=== PATIENT | male | born 1950 | race Two or more races ===

== ENCOUNTER 2017-07-30 08:55 | Outpatient (CLI) | payer OTHER | END 2017-07-30 23:59 | LOC: MSC 08:55 | PROVIDERS: ATTEND Anesthesiology | DX: G89.29 Other chronic pain (principal); M54.5 Low back pain; M62.830 Muscle spasm of back; N18.6 End stage renal disease; Z99.2 Dependence on renal dialysis ==

== ENCOUNTER 2017-10-15 10:00 | Outpatient (CLI) | payer OTHER | END 2017-10-15 23:59 | LOC: MSC 10:00 | PROVIDERS: ATTEND Anesthesiology | DX: M54.5 Low back pain (principal); G89.29 Other chronic pain; M62.830 Muscle spasm of back; G82.20 Paraplegia, unspecified; Z79.899 Other long term (current) drug therapy; N18.6 End stage renal disease; Z99.2 Dependence on renal dialysis ==

== ENCOUNTER 2017-11-26 09:00 | Outpatient (CLI) | payer OTHER | END 2017-11-26 23:59 | LOC: MSC 09:00 | PROVIDERS: ATTEND Anesthesiology | DX: M54.5 Low back pain (principal); G89.29 Other chronic pain; M62.830 Muscle spasm of back; G82.20 Paraplegia, unspecified; N18.6 End stage renal disease; Z99.2 Dependence on renal dialysis; Z79.899 Other long term (current) drug therapy ==

== ENCOUNTER 2018-01-04 11:41 | Outpatient (CLI) | payer OTHER | END 2018-01-04 23:59 | disposition home or self-care (01) | LOC: MSC 11:41 | PROVIDERS: ATTEND Anesthesiology | DX: M54.5 Low back pain (principal); G89.29 Other chronic pain; M62.830 Muscle spasm of back; G82.20 Paraplegia, unspecified; G47.00 Insomnia, unspecified; Z79.899 Other long term (current) drug therapy ==